=== PATIENT | female | born 1990 | race Caucasian/White ===

== ENCOUNTER 2017-05-31 12:41 | Emergency (ER) | payer OTHER ==
--- NOTE | 2017-05-31 14:51 | ED Physician Documentation ---
PD HPI BACK INJURY - Stated complaint Stated Complaint: BACK PX - History obtained from History obtained from: Patient - History of Present Illness Location: Right, Lower Type of injury: Other (lifting a treadmill, widh was verry heavy, and felt exac of ongoing right lower pain.) Where injury occurred: Home Timing - onset: How many days ago (5) Timing - duration: Days (5) Timing - details: Still present, Waxing and waning Quality: Pain, Spasm, Tearing Improved by: Rest Worsened by: Moving, Palpating Review of Systems Constitutional: denies: Fever, Chills, Myalgias Throat: denies: Dental pain / toothache, Sore throat PD PAST MEDICAL HISTORY - Past Medical History Past Medical History: Yes Neuro: Headache/migraine Psych: None Musculoskeletal: Chronic back pain - Past Surgical History Past Surgical History: No - Present Medications Home Medications: Ambulatory Orders Medication Instructions Recorded Confirmed Cyclobenzaprine [Flexeril] 1 tab TID PRN 05/31/17 05/31/17 Dexamethasone [Decadron] 4 mg PO DAILY #5 tablet 05/31/17 HYDROcod/ACETAM 5/325 [[place] 5/325] 1 tab PO Q6H PRN #25 tablet 05/31/17 Methocarbamol [Robaxin] 500 mg PO Q6H PRN #25 tablet 05/31/17 Naproxen [Naprosyn] 500 mg PO BID #20 tablet 05/31/17 - Allergies Allergies/Adverse Reactions: Allergies Allergy/AdvReac Type Severity Reaction Status Date / Time sumatriptan [From Imitrex] AdvReac Intermediate Headache Verified 05/31/17 12:56 sumatriptan succinate * AdvReac Intermediate Headache Verified 05/31/17 12:56 [From Imitrex] - Social History Does the pt smoke?: Yes Smoking Status: Current every day smoker Does the pt drink ETOH?: Yes Does the pt have substance abuse?: No - Immunizations Immunizations are current?: Yes - POLST Patient has POLST: No PD ED PE NORMAL - Vitals Vital signs reviewed: Yes - General General: Alert and oriented X 3, No acute distress, Well developed/nourished - Respiratory Respiratory: No respiratory distress, Clear bilaterally - Abdomen Abdomen: Soft, Non tender - Back Back: No CVA TTP, No spinal TTP, Other (tender right lower msucles and toward the upper SI joint area. ) - Derm Derm: Normal color, Warm and dry - Extremities Extremities: No tenderness to palpate, Normal ROM s pain - Neuro Neuro: Alert and oriented X 3, No motor deficit, No sensory deficit, Other ( normal knee DTRs) Results - Vitals Vitals: Oxygen O2 Source Room air PD MEDICAL DECISION MAKING - ED course Complexity details: considered differential, d/w patient Departure - Departure Disposition: 01 Home, Self Care Clinical Impression: Low back strain Qualifiers: Encounter type: initial encounter Qualified Code(s): S39.012A - Strain of muscle, fascia and tendon of lower back, initial encounter Condition: Stable Record reviewed to determine appropriate education?: Yes Instructions: ED Sprain Strain Lumbar Follow-Up: [facility] [Provider Group] Prescriptions: Dexamethasone [Decadron] 4 mg PO DAILY #5 tablet HYDROcod/ACETAM 5/325 [[place] 5/325] 1 tab PO Q6H PRN #25 tablet PRN Reason: Pain Methocarbamol [Robaxin] 500 mg PO Q6H PRN #25 tablet PRN Reason: Spasms Naproxen [Naprosyn] 500 mg PO BID #20 tablet Comments: Heat and gentle stretching for the low back. Try to increase range of motion gently. Naproxen twice daily for 7-10 days. Decadron steroid anti- inflammatory daily for 5 days. Use Robaxin muscle relaxant a few times a day to see if it helps reduce stiffening. There may not be a spasm component so may not help as much. Hydrocodone if needed for pain. Follow-up with your primary care in the next few days. He could also try physical therapy or chiropractic treatment to help with the back as well. Limited lifting bending and twisting for 5 or 6 days. Forms: Activity restrictions Discharge Date/Time: 05/31/17 15:46
[2017-05-31] MEDS ORDERED: KETOROLAC 30 MG/ML VIAL IM STA (15:17)
[2017-05-31] MEDS ORDERED: DEXAMETHASONE 10 MG/ML VIAL PO STA (15:17)
[2017-05-31] MEDS ORDERED: ACETAMINOPHEN 325 MG TABLET PO STA (15:17)
[2017-05-31] MEDS ORDERED: DEXAMETHASONE 10 MG/ML VIAL ONE (15:24)
[2017-05-31] MEDS ORDERED: KETOROLAC 30 MG/ML VIAL ONE (15:24)
[2017-05-31] MEDS ORDERED: ACETAMINOPHEN 325 MG TABLET PO ONE (15:24)
[2017-05-31 15:44] VITALS: BP 106/72
== END 2017-05-31 15:46 | disposition home or self-care (01) ==
LOC: ED 12:41
DX: S39.012A Strain of muscle, fascia and tendon of lower back, initial encounter (principal); X50.0XXA Overexertion from strenuous movement or load, initial encounter; G89.29 Other chronic pain; F17.200 Nicotine dependence, unspecified, uncomplicated
CPT/HCPCS: 99283; A9270

== ENCOUNTER 2019-10-24 17:21 | Emergency (ER) | payer OTHER ==
--- NOTE | 2019-10-24 18:58 | ED Physician Documentation ---
PD HPI BACK PAIN - Stated complaint Stated Complaint: RT LEG PX - Chief complaint Chief Complaint: Back Pain - History obtained from History obtained from: Patient - History of Present Illness Timing - onset: How many days ago (several) Timing - duration: Days (several) Timing - details: Gradual onset, Still present (awoke Tuesday morning with it and has had pain with ROM in the right low back/buttock area, radiating to posterior right leg.) Location: Lower, Right Quality: Pain, Spasm, Aching Associated symptoms: Other (no rash nor redness.). No: Fever, Weakness, Numbness Worsened by: Movement, Twisting. No: Palpation Contributing factors: Twisting Similar symptoms before: Has not had sx before Review of Systems Constitutional: denies: Fever, Chills, Myalgias Nose: denies: Rhinorrhea / runny nose, Congestion Throat: denies: Sore throat Respiratory: denies: Cough GI: denies: Abdominal Pain, Constipation, Diarrhea : denies: Dysuria, Frequency, Hematuria Skin: denies: Rash, Lesions Musculoskeletal: reports: Back pain. denies: Neck pain Neurologic: denies: Focal weakness, Numbness PD PAST MEDICAL HISTORY - Past Medical History Past Medical History: No Psych: None Musculoskeletal: Chronic back pain - Past Surgical History Past Surgical History: No - Present Medications Home Medications: Ambulatory Orders Medication Instructions Recorded Confirmed Cyclobenzaprine [Flexeril] 1 tab TID PRN 05/31/17 05/31/17 HYDROcod/ACETAM 5/325 [[place] 5/325] 1 tab PO Q6H PRN #25 tablet 05/31/17 Naproxen [Naprosyn] 500 mg PO BID #20 tablet 05/31/17 dexAMETHasone [Decadron] 4 mg PO DAILY #5 tablet 05/31/17 methocarbamoL [Robaxin] 500 mg PO Q6H PRN #25 tablet 05/31/17 Meloxicam [Mobic] 7.5 mg PO BID PRN #20 tablet 10/24/19 Oxycodone HCl/Acetaminophen 1 each PO Q6H PRN #20 tablet 10/24/19 [Percocet 5-325 mg Tablet] Tizanidine HCl 4 mg PO TID PRN #25 capsule 10/24/19 dexAMETHasone [Decadron] 4 mg PO DAILY #5 tablet 10/24/19 - Allergies Allergies/Adverse Reactions: Allergies Allergy/AdvReac Type Severity Reaction Status Date / Time sumatriptan [From Imitrex] AdvReac Intermediate Headache Verified 10/24/19 17:37 sumatriptan succinate * AdvReac Intermediate Headache Verified 10/24/19 17:37 [From Imitrex] - Social History Does the pt smoke?: Yes Smoking Status: Current every day smoker Does the pt drink ETOH?: Yes Does the pt have substance abuse?: No - Immunizations Immunizations are current?: Yes - POLST Patient has POLST: No PD ED PE NORMAL - Vitals Vital signs reviewed: Yes - General General: Alert and oriented X 3, Well developed/nourished, Other (seems guarded in ROM and pain with twisting, not as much with just flexion. ) - Abdomen Abdomen: Soft, Non tender - Back Back: No CVA TTP, No spinal TTP, Other (some tender at right SI area without focality. No redness nor rash. ) - Derm Derm: Normal color, Warm and dry, No rash - Extremities Extremities: Other (right hip external rotation and in cross leg position, with pain to right buttock/pelvic area. ) - Neuro Neuro: Alert and oriented X 3, No motor deficit, No sensory deficit, Normal speech Results - Vitals Vitals: Vital Signs - 24 hr 10/24/19 10/24/19 17:37 20:09 Temperature 36.8 C 36.6 C Heart Rate 100 96 Respiratory 16 16 Rate Blood Pressure 104/70 106/68 O2 Saturation 99 100 Oxygen O2 Source Room air PD MEDICAL DECISION MAKING - ED course Complexity details: considered differential, d/w patient Departure - Departure Disposition: 01 Home, Self Care Clinical Impression: Radicular low back pain, Sacroiliitis Condition: Stable Record reviewed to determine appropriate education?: Yes Instructions: ED Sacroiliitis Follow-Up: Tomás Henry MD [Primary Care Provider] - Prescriptions: dexAMETHasone [Decadron] 4 mg PO DAILY #5 tablet Meloxicam [Mobic] 7.5 mg PO BID PRN #20 tablet PRN Reason: Pain Oxycodone HCl/Acetaminophen [Percocet 5-325 mg Tablet] 1 each PO Q6H PRN #20 tablet PRN Reason: pain Tizanidine HCl 4 mg PO TID PRN #25 capsule PRN Reason: Spasms Comments: This may be a pinched nerve from the low spine or actually consider more likely some inflammation at the SI joint area of the pelvis with irritation of the nerve as it passes through. Both of the above would be treated similarly with anti-inflammatories and muscle relaxants and pain medicine with gentle range of motion and limited activity. The difference would be the types of stretching or exercises that you would do for them. Take medications as prescribed. Follow-up with your primary care in the next several days, particularly if not improving well over the next few days and resolved by a week. Forms: Activity restrictions Discharge Date/Time: 10/24/19 20:09
[2019-10-24] MEDS ORDERED: KETOROLAC 30 MG/ML VIAL IM STA (19:22)
[2019-10-24] MEDS ORDERED: HYDROmorphone 1 MG/ML CARPUJECT IM STA (19:22)
[2019-10-24] MEDS ORDERED: DEXAMETHASONE 10 MG/ML VIAL PO STA (19:23)
[2019-10-24] MEDS ORDERED: CHERRY SYRUP 10 ML UDC PO ONE (19:23)
[2019-10-24] MEDS ORDERED: methocarbamoL 500 MG TABLET PO STA (19:23)
[2019-10-24 20:10] VITALS: BP 106/68
== END 2019-10-24 20:09 | disposition home or self-care (01) ==
LOC: ED 17:21
DX: M54.16 Radiculopathy, lumbar region (principal); M46.1 Sacroiliitis, not elsewhere classified; F17.200 Nicotine dependence, unspecified, uncomplicated
CPT/HCPCS: 96372; 99283; 99284; A9270; J1170

== ENCOUNTER 2019-12-12 09:16 | Outpatient (CLI) | payer OTHER ==
[2019-12-12] MEDS ORDERED: GADOBUTROL 7.5 MMOL/7.5 ML VIAL ONE (09:32)
[2019-12-12] MEDS ORDERED: GADOBUTROL 7.5 MMOL/7.5 ML VIAL IVP ONE (10:26)
--- NOTE | 2019-12-12 11:49 | MRI Report ---
Reason: LUMBAR RADICULOPATHY Procedure Date: 12/12/2019 Accession Number: [id number] / [id number] Procedure: MRI - Lumbar Spine W/WO CPT Code: Addended Final Report FULL RESULT: EXAM: MRI LUMBAR SPINE WITHOUT AND WITH CONTRAST EXAM DATE: 12/12/2019 10:36 AM. CLINICAL HISTORY: Lumbar radiculopathy, low back pain that travels down the right leg to the ankle. History of prior L5-S1 laminectomy, diskectomy in 2018. COMPARISONS: None. TECHNIQUE: Multiplanar, multisequence T1-weighted and fluid-sensitive sequences of the lumbar spine from T12 to S1 before and after administration of intravenous contrast. Other: None. IV contrast: 7 cc Gadavist.. Findings: Relevant images are indicated (image number, series number). There are 5 [id number] lumbar vertebra, conus terminates at the T12-L1 level, no Abnormal Lumbar Ct., [place] suspicious marrow lesion. There is no lumbar paraspinal mass or collection. Partly visualized bilateral kidneys are unremarkable. Surrounding skeletal muscle unremarkable. Mild chronic multilevel lumbar spondylosis with the exception of L5-S1 level which demonstrates moderate/marked disk desiccation and a right large posterior parasagittal 1.4 cm disk extrusion (10, 601; 8, 1001), which impacts the traversing right S1 nerve root. This also produces mild/moderate canal stenosis. There is marked effacement of the right lateral recess (3, 1001). At the L5-S1 level there is mild accompanying Modic type I endplate change. There is mild bilateral L5-S1 neural foramina narrowing. Remainder of the lumbar spine, upper sacral canal appears unremarkable. Impressions: 1. 5 [id number] lumbar vertebra, no abnormal lumbar cord Maria Teresa suspicious marrow lesion. 2. L5-S1: Large right 1.4 cm posterior parasagittal disk extrusion, likely responsible for the patient's symptoms. Correlate clinically. Obtain surgical consultation given the size of the extrusion. There is also mild/moderate focal canal stenosis, mild Modic type I endplate change which may be locally symptomatic. 3. Milder or no significant degenerative changes of the remaining lower thoracic, lumbar spine levels as detailed. 4. Postcontrast imaging and demonstrates the L5-S1 Modic changes, also outlined the disk extrusion right posterior parasagittal at L5-S1, otherwise are unremarkable. Comment: The following findings are so common in adults without low back pain that while we report their presence, they must be interpreted with caution and in the context of the clinical situation. (Reference Crissyk et al, Spine 2001) Prevalence of findings in patients without low back pain: Disk degeneration (any evidence): 92% Disk desiccation/T2 signal loss: 83% Disk height loss: 56% Disk bulge: 64% Disk protrusion: 32% Annular tear/high intensity zone: 38% RADIA The call report notification system was initiated by Dr. Dyllan Clemente at 11:43 AM on 12/12/2019. ADDENDUM: 12/12/19 12:22 Multiple attempts were made to reach a provider for this patient, without success, voicemail left.
== END 2019-12-12 09:17 | disposition home or self-care (01) ==
LOC: DI 09:16
PROVIDERS: ATTEND General Practice
DX: M51.27 Other intervertebral disc displacement, lumbosacral region (principal); M48.07 Spinal stenosis, lumbosacral region; M47.816 Spondylosis without myelopathy or radiculopathy, lumbar region
CPT/HCPCS: 72158; A9585

== ENCOUNTER 2020-04-19 19:08 | Emergency (ER) | payer OTHER ==
[2020-04-19 19:28] VITALS: BP 119/82
--- NOTE | 2020-04-19 19:39 | ED Physician Documentation ---
History of Present Illness - Stated complaint Stated Complaint: POST OP STICHES DRAINING - Chief complaint Chief Complaint: Wound - History obtained from History obtained from: Patient - History of Present Illness Timing: Today Pain level max: 0 Pain level now: 0 - Additonal information Additional information: 29-year-old female presents to the emergency department after having a spinal fusion, L5-S1 done on April 10 at [facility] with Dr. paredes. Today she felt an itch on her back, scratched and there was clear yellow/bloody fluid that drained from a stitch. Not currently have any further drainage. Nothing makes it better or worse. No fevers. No chills. No pain. No loss of bowel or bladder control. No numbness or tingling. Review of Systems Constitutional: denies: Fever, Chills Respiratory: denies: Cough GI: denies: Nausea, Vomiting, Diarrhea : denies: Dysuria, Frequency, Hesitancy, Unable to Void, Incontinent Skin: denies: Rash Musculoskeletal: denies: Neck pain, Back pain Neurologic: denies: Headache PD PAST MEDICAL HISTORY - Past Medical History Past Medical History: Yes Psych: None Musculoskeletal: Chronic back pain - Past Surgical History Past Surgical History: Yes Ortho: Spine surgery (L5-S1 fusion) - Present Medications Home Medications: Ambulatory Orders Medication Instructions Recorded Confirmed Cyclobenzaprine [Flexeril] 1 tab TID PRN 05/31/17 05/31/17 HYDROcod/ACETAM 5/325 [[place] 5/325] 1 tab PO Q6H PRN #25 tablet 05/31/17 Naproxen [Naprosyn] 500 mg PO BID #20 tablet 05/31/17 dexAMETHasone [Decadron] 4 mg PO DAILY #5 tablet 05/31/17 methocarbamoL [Robaxin] 500 mg PO Q6H PRN #25 tablet 05/31/17 Meloxicam [Mobic] 7.5 mg PO BID PRN #20 tablet 10/24/19 Oxycodone HCl/Acetaminophen 1 each PO Q6H PRN #20 tablet 10/24/19 [Percocet 5-325 mg Tablet] Tizanidine HCl 4 mg PO TID PRN #25 capsule 10/24/19 dexAMETHasone [Decadron] 4 mg PO DAILY #5 tablet 10/24/19 - Allergies Allergies/Adverse Reactions: Allergies Allergy/AdvReac Type Severity Reaction Status Date / Time sumatriptan [From Imitrex] AdvReac Intermediate Headache Verified 04/19/20 19:28 sumatriptan succinate * AdvReac Intermediate Headache Verified 04/19/20 19:28 [From Imitrex] - Living Situation Living Situation: reports: With family Living Arrangement: reports: At home - Social History Does the pt smoke?: Yes Smoking Status: Current every day smoker Does the pt drink ETOH?: Yes Does the pt have substance abuse?: No - Immunizations Immunizations are current?: Yes - POLST Patient has POLST: No PD ED PE NORMAL - Vitals Vital signs reviewed: Yes - General General: Alert and oriented X 3, No acute distress - HEENT HEENT: Moist mucous membranes - Neck Neck: Supple, no meningeal sign - Back Back: Other (Incisions are clean, dry, intact. Neurovascularly intact. No motor or sensory deficits. No saddle anesthesia.) - Derm Derm: Warm and dry - Neuro Neuro: Alert and oriented X 3 Results - Vitals Vitals: Vital Signs - 24 hr 04/19/20 19:20 Temperature 37.2 C Heart Rate 81 Respiratory 16 Rate Blood Pressure 119/82 H O2 Saturation 99 Oxygen O2 Source Room air PD MEDICAL DECISION MAKING - ED course Complexity details: considered differential, d/w patient ED course: Patient with what appears to be a small postoperative seroma. This spontaneously ruptured. She did bring a tissue with some of the fluid on it. Does not appear purulent or infected. Has an appoint with her spine surgeon this week. A call was placed to Dr. Paredes, her spine surgeon. Spoke with Dr. Patahk. Patient will follow up un clinic. Patient counseled regarding signs and symptoms for which I believe and urgent re-evaluation would be necessary. Patient with good understanding of and agreement to plan and is comfortable going home at this time This document was made in part using voice recognition software. While efforts are made to proofread this document, sound alike and grammatical errors may occur. Departure - Departure Disposition: 01 Home, Self Care Clinical Impression: Postoperative seroma Qualifiers: Surgical complication system/body Area: subcutaneous tissue Procedure type: non-dermatologic Qualified Code(s): L76.34 - Postprocedural seroma of skin and subcutaneous tissue following other procedure Condition: Good Instructions: ED Seroma Post Op Follow-Up: Messi Owens MD [Physician No Access] - Within 1 week Comments: Return if you worsen, especially for fevers, redness, purulent drainage or any other new or worsening symptoms. Follow-up with Dr. Owens as scheduled. Discharge Date/Time: 04/19/20 19:45
== END 2020-04-19 19:45 | disposition home or self-care (01) ==
LOC: ED 19:08
DX: L76.34 Postprocedural seroma of skin and subcutaneous tissue following other procedure (principal); Y83.8 Other surgical procedures as the cause of abnormal reaction of the patient, or of later complication, without mention of misadventure at the time of the procedure; F17.200 Nicotine dependence, unspecified, uncomplicated
CPT/HCPCS: 99281; 99282

== ENCOUNTER 2023-07-22 08:07 | Outpatient (CLI) | payer OTHER ==
--- NOTE | 2023-07-22 13:13 | Ultrasound Report ---
LIMITED ULTRASOUND OF LEFT BREAST: 07/22/2023 CLINICAL: Palpable left breast lump. No prior exams were available for comparison. Color flow ultrasound of the left breast 10 o'clock region was performed. Penaloza scale images of the real-time examination were reviewed. There is a 0.8 cm x 0.3 cm x 0.9 cm wider than tall oval cyst in the left breast at 10 o'clock anteri or depth 4 cm from the nipple. This oval cyst is anechoic. This correlates as an incidental finding . Color flow imaging demonstrates that there is no vascularity present. IMPRESSION: BENIGN There is no sonographic evidence of malignancy. The 0.8 cm x 0.3 cm x 0.9 cm wider than tall oval simple cyst in the left breast is benign. This is an incidental finding adjacent to area of concern. There is no abnormality seen in the left breast to correspond with the area of clinical concern and p alpable abnormality at 10 o'clock which is consistent with normal dense fibroglandular tissue. Recommend clinical follow up for persistent or worsening symptoms, or development of any clinically suspicious findings. Recommend initiating routine screening mammograms at age 40. Findings and recommendations were conveyed to the patient during today's evaluation. This exam was interpreted at Station ID: [id number]. Electronically Signed By: Jewel Cavazos M.D. aty/:07/22/2023 09:40:00 Ultrasound BI-RADS: 2 Benign BI-RADS CATEGORY: (2) - 2 RECOMMENDATION: (ADDMAM) - Recommend additional mammographic views. recall n/a LATERALITY: (B)
--- NOTE | 2023-07-22 13:13 | Mammography Report ---
BILATERAL DIGITAL DIAGNOSTIC MAMMOGRAM 3D/2D WITH SPOT COMPRESSION: 07/22/2023 CLINICAL: Baseline exam. Palpable left breast lump. No prior exams were available for comparison. Both breasts are heterogeneously dense, which may obscure small masses (category c / 51-75% glandular tissue). No significant masses, calcifications, or other findings are seen in either breast. IMPRESSION: INCOMPLETE: NEEDS ADDITIONAL IMAGING EVALUATION There is no abnormality seen in the left breast to correspond with the area of clinical concern and p alpable abnormality indicated by triangular marker in the anterior depth in the upper inner quadrant, however, an ultrasound is recommended for further evaluation and is scheduled to immediately follow this examination. Based on the Tyrer Cuzick model (a risk assessment model) the patients lifetime risk is 8.9% and her 10 year risk is 0.6%. According to the ACR, ACS, and NCCN guidelines, an annual breast MRI exam magdalena g with mammogram is recommended if the patients lifetime risk is 20% or greater. This exam was interpreted at Station ID: [id number]. NOTE: For mammograms, a report in lay terms will be sent to the patient. Approximately 15% of breast malignancies will not be visualized mammographically. In the management of a palpable breast mass, a negative mammogram must not discourage biopsy of a clinically suspicious lesion. Electronically Signed By: Jewel Cavazos M.D. aty/:07/22/2023 08:54:57 ACR BI-RADS Category 0: Incomplete 3340F PARENCHYMAL PATTERN: (D) - The breast(s) demonstrate(s) heterogeneously dense fibroglandular paraliyahy ma. BI-RADS CATEGORY: (0) - 0 Ultrasound [id number] Immediate follow-up LATERALITY: (L)
== END 2023-07-22 08:08 | disposition home or self-care (01) ==
LOC: DI 08:07
PROVIDERS: ATTEND Internal Medicine
DX: N63.22 Unspecified lump in the left breast, upper inner quadrant (principal); R92.333 Mammographic heterogeneous density, bilateral breasts